=== PATIENT | male | born 1955 | race Caucasian/White ===

== ENCOUNTER 2017-02-16 13:45 | Inpatient (IN) | payer BC, OTHER ==
[~2017-02-16] VITALS: Ht 165.1 cm; Wt 85.7 kg
--- NOTE | ~2017-02-16 | P ---
[facility] [place] [address] PROCEDURE REPORT Name: ALEXNICHOLEBECKBIA DAVID Room #: 302-P [facility] IN M.R.#: [id number] Admission: 02/16/17 Attend Phys: Jeramie Rader MD Discharge: 02/19/17 Date of : 57 Report #: [id number] THIS REPORT FOR: //name// CC: Jeramie Alford DATE OF SERVICE: 02/18/2017 HISTORY OF PRESENT ILLNESS: This is a 61-year-old male patient admitted to the hospital with a possible insect bite with secondary cellulitis to his left abdominal wall. He has areas of necrosis and debridement was felt to be appropriate. PREPROCEDURE DIAGNOSIS: Necrotic ulceration to left abdominal wall. POSTPROCEDURE DIAGNOSIS: Necrotic ulceration to left abdominal wall. PROCEDURE PERFORMED: Full thickness sharp excisional debridement of the left abdominal wall. DESCRIPTION OF PROCEDURE: After appropriate informed consent was obtained, the area of the left abdominal wall was prepped and draped in the usual sterile fashion and anesthetized with 1% lidocaine with epinephrine. After adequate local anesthesia, a #15 bladed scalpel was used to excise the necrotic material including the wound margins down into the subcutaneous tissue to healthy bleeding tissue. Bleeding was controlled with direct pressure. Estimated blood loss approximately 2 mL. The patient tolerated the procedure well with no complications. <ELECTRONICALLY SIGNED> By: Constantin Solomon MD 02/19/17 1804 1821 0057 Constantin Solomon MD /baldev
--- NOTE | ~2017-02-16 | HC ---
[facility] [place] [address] CONSULTATION Name: ALEXTJBIA FRANKIE Room #: 302-P [facility] IN ..#: [id number] Admission: 02/16/17 Attend Phys: Jeramie Rader MD Discharge: 02/19/17 Date of : 57 Report #: [id number] THIS REPORT FOR: //name// CC: Jeramie Alford DATE OF SERVICE: 02/18/2017 WOUND CARE CONSULTATION DATE OF EVALUATION: 02/18/2017 CHIEF COMPLAINT: Cellulitis and ulceration, left abdominal wall. HISTORY OF PRESENT ILLNESS: This is a 61-year-old male patient who was approximately a week ago camping in [place], [place] with [employer]. He noticed a possible small insect bite to his left abdominal wall and developed some surrounding erythema. This became progressive and increasingly painful and then developed some tissue necrosis. He was subsequently admitted to the hospital for ongoing treatment and evaluation and I have been asked to see him with regard to wound care. The patient denies problems with previous ulcerations or nonhealing wounds. He has no history of diabetes or any immunocompromised. Patient's cultures were obtained on admission and are pending at this time. He has been started on intravenous cefazolin and notes that he is feeling somewhat better. ALLERGIES: No known drug allergies. SOCIAL HISTORY: Currently smokes a pipe and admits occasional alcohol use. PAST MEDICAL HISTORY: Positive for a "mini stroke" with no residual sequelae. CURRENT MEDICATIONS: Include aspirin, cefazolin, diphenhydramine, enoxaparin, hydrocodone, mupirocin, ondansetron as well as vancomycin intravenously. REVIEW OF SYSTEMS: CONSTITUTIONAL: The patient denies fever or chills. ENT: The patient denies earache, nasal drainage, or sore throat. CARDIOVASCULAR: The patient denies chest pain, palpitation, or diaphoresis. PULMONARY: The patient denies cough or shortness of breath. GASTROINTESTINAL: The patient denies nausea or abdominal pain. ORTHOPEDIC: The patient has pain, swelling, or limitations of extremities. Other systems are negative other than that mentioned in the history of present illness. PHYSICAL EXAMINATION: [facility] [address] [place] [address] CONSULTATION Name: BIA SANCHEZ Room #: 302-P [facility]#: [id number] Admission: 02/16/17 Attend Phys: Jeramie Rader MD Discharge: 02/19/17 Date of : 57 Report #: [id number] VITAL SIGNS: Include temperature 98.0, pulse 82, respiratory rate of 16, blood pressure 138/84. GENERAL: This is a well-developed, well-nourished man patient who appears to be in no apparent distress. HEENT: Head normocephalic. Mouth and throat were clear. NECK: Supple. LUNGS: Clear. HEART: Regular. ABDOMEN: Slightly obese. There is tenderness and erythema in the left lateral abdominal wall. There are 2 areas of localized necrosis with surrounding erythema and induration. There is a line drawn on the skin and the erythema appears to be retreated to within the bounds of that line. There is no evidence of lymphangitis. EXTREMITIES: Without clubbing or cyanosis. Pulses are palpable. NEUROLOGIC: The patient is alert, oriented and appropriate. Motor is 5/5 in the upper and lower extremity. LABORATORY DATA: Includes sodium 140, potassium 4.0, chloride 103, CO2 27, BUN is 15, creatinine 1.2, glucose of 93, white blood cell count 10.2 with hemoglobin of 15.8, hematocrit of 46.5, and platelet count 274,000. CLINICAL IMPRESSION: Necrotic ulceration to the left abdominal wall with surrounding cellulitis, possibly secondary to insect bite. It cannot be specified which type of insect, whether this was spider or other. The areas of necrosis were sharply debrided in an excisional manner. Please refer to separate procedure note regarding those details. RECOMMENDATION: At this point in time, we recommend a topical antibiotic ointment with a nonadherent dressing and a gauze or ABD, secondary dressing to be changed once daily. I agree with continued use of intravenous antibiotic therapy, pending cultures. I have answered all questions. I appreciate being asked to see the patient in consultation. <ELECTRONICALLY SIGNED> By: Constantin Solomon MD 02/19/17 1804 1826 0023 Constantin Solomon MD /nt
--- NOTE | ~2017-02-16 | HC ---
[facility] [place] [address] CONSULTATION Name: BIA SANCHEZ Room #: 302-P ADM IN M.R.#: [id number] Admission: 02/16/17 Attend Phys: Jeramie Rader MD Discharge: Date of : 57 Report #: [id number] THIS REPORT FOR: //name// CC: Jeramie Alford DATE OF SERVICE: 02/18/2017 INFECTIOUS DISEASE CONSULTATION ATTENDING PHYSICIAN: Jeramie Rader M.D. REASON FOR CONSULTATION: Left-sided abdominal wall spider bite versus cellulitis. HISTORY OF PRESENT ILLNESS: Apparently, this patient was camping a week ago this past Saturday and returned home, when he started feeling something ____ on the left flank. The redness of the left flank continued to progress. He developed a couple of areas of superficial skin necrosis. He was initially started on topical triple antibiotics and ibuprofen. He failed to improve. He was evaluated in the Emergency Room, and he was admitted. He was started on Ancef. I did discuss the patient's situation with Dr. Koenig and changed Ancef to vancomycin yesterday. The patient at present was evaluated by Dr. Fabian Morales. The blood scabs from the left flank area where he might have the spider bite were debrided. The patient is overall feeling better. He actually could be going home. The only drawback is that the culture result is not back and the Gram stain showing some gram-positive cocci. The patient for the most part is a healthy person. The only problem is a TIA and tonsillectomy in the past. During this hospitalization, he was mildly azotemic and this has resolved with IV fluids. DRUG ALLERGIES: None listed. MEDICATIONS: Enoxaparin 40 mg subQ daily, vancomycin 1250 mg IV every 12 hours, topical mupirocin, aspirin 81 mg daily, Benadryl p.r.n., hydrocodone p.r.n., and intravenous fluids, we will discontinue. He was on cefazolin on February 16 and . SOCIAL HISTORY: See H and P. FAMILY HISTORY: See H and P. PAST MEDICAL HISTORY: Tonsillectomy and adenoidectomy; transient ischemic attack, on treatment with aspirin by mouth; possible 30% carotid artery disease on the right side. Remainder of the artery is normal. [address] [address] CONSULTATION Name: BIA SANCHEZ Room #: 302-P [facility] IN M.R.#: [id number] Admission: 02/16/17 Attend Phys: Jeramie Rader MD Discharge: Date of : 57 Report #: [id number] REVIEW OF SYSTEMS: Essentially noncontributory besides local abdominal wall pains and low grade fever. PHYSICAL EXAMINATION: GENERAL: Well-developed man, non-toxic looking, in no distress. VITAL SIGNS: He is presenting with following vital signs: Temperature maximum at 100.2 on 02/16/2017, at 1447 hours, afebrile thereafter. Pulse 82, respirations 16, and BP 138/84. HEENMT: Normal. NECK: Supple, no thyromegaly. LUNGS: Clear to auscultation. HEART: S1, S2. No gallop or murmur. ABDOMEN: There are a couple of areas of black discoloration which may have been ____ of the spider insect bite on the left flank. Those lesions were unroofed now. The area of erythema of the left flank abdominal wall is improved compared to pictures obtained by from previous days. Abdomen benign otherwise. GENITALIA AND RECTAL: Deferred. EXTREMITIES: No clubbing, cyanosis. NEUROLOGIC: Grossly within normal limits. LABORATORY DATA: On admission, BUN 29, creatinine 1.5. Today, those have reverted back to normal. Albumin 3.6 g/dL on admission. On admission, WBC 9.2, hemoglobin 15.9. Today's WBC is 10.2, hemoglobin 15.8 and platelets 274,000. MICROBIOLOGY DATA: The Gram stain of the abdominal wall lesion that was sampled revealed few wbc's, moderate rbc's, rare gram-positive cocci, the culture is still pending. Blood cultures negative. ASSESSMENT: 1. Possible spider - insect bite, left abdominal wall with cellulitic changes, possible superimposed streptococcal versus staphylococcal infection. 2. Acute kidney injury, resolved. 3. History of transient ischemic attack. SUGGESTIONS: We will continue vancomycin 250 IV every 12 hours. We will discuss situation with Dr. Rader. We will try to determine time of discharge. The patient would like to be discharged today. If so, could give Minocin 100 mg b.i.d. and Keflex 500 q.i.d. With that combination, we will cover streptococcus and MRSA. Dr. Rader, thank you for requesting my suggestions. <ELECTRONICALLY SIGNED> By: Brain Metcalf MD 02/19/17 1117 1340 12 Brain Metcalf MD /nt
--- NOTE | ~2017-02-16 | CRIT ---
[facility] [place] [address] CRITICAL CARE NOTE Name: LAURABIA DAVID Room #: 302-P [facility] IN M.R.#: [id number] Admission: 02/16/17 Attend Phys: Jeramie Rader MD Discharge: Date of : 57 Report #: [id number] THIS REPORT FOR: //name// CC: Jeramie Alford DATE OF SERVICE: 02/17/2017 REASON FOR CONSULTATION: Cellulitis of left lower abdominal wall, suspected insect bite or spider bite. HISTORY OF PRESENT ILLNESS: The patient is a generally healthy, obese 61-year-old gentleman, who is a tobacco user and has a history of prior TIA, who approximately 7-8 days ago went camping and afterwards noticed some redness and tenderness in his left lower abdominal area. The area became red and tender with two small open wounds, which started to drain and some redness extended from the wound. The patient treated this at home with topical antibiotics and did not see a physician. The patient had some low-grade fever. Redness around the wound extended and after about a week being busy at work, he presented himself to the emergency room where he was admitted to [facility] for cellulitis of the left lower abdominal wall with a small area of central necrosis. ALLERGIES: No known drug allergies. HOME MEDICATIONS: See chart. PAST MEDICAL HISTORY: The patient is nondiabetic. He has a history of transient ischemic attack in the past. SOCIAL HISTORY: The patient is a tobacco user. ADMISSION LABORATORY DATA: White blood count 9.2, creatinine 1.5. PHYSICAL EXAMINATION: GENERAL: The patient is a very pleasant appearing, alert 61-year-old gentleman who is moderately obese. HEENT: He is alert and oriented. Mucous membranes are moist. NECK: Supple. CHEST: Clear. HEART: Regular rate and rhythm. OBJECTIVE: VITAL SIGNS: On admission, temperature 37.3 with pulse of 105. Today, temperature 36.8, pulse 76, blood pressure 152/93. ABDOMEN: Abdominal exam shows his left lower abdomen, flank area, two small [facility] [address] [place] [address] CRITICAL CARE NOTE Name: BIA SANCHEZ Room #: 302-P [facility] IN [facility]#: [id number] Admission: 02/16/17 Attend Phys: Jeramie Rader MD Discharge: Date of : 57 Report #: [id number] dark open wounds in the left lateral lower abdomen, largest measuring 0.8 x 0.4 cm and small one measuring 0.6 x 0.3 cm with some dark brown discoloration with very small amount of drainage. There is a 2 cm area of underlying induration which does not appear to be fluctuant. Extending from this in a 35 cm x 10 cm area, there is erythema of the skin, which is nonindurated. ASSESSMENT AND PLAN: 1. Obesity. 2. Tobacco use. 3. History of transient ischemic attack. 4. Cellulitis of left lower lateral abdomen with open central necrotic wound. This may represent spider bite versus primary bacterial infection such as rule out methicillin-resistant Staphylococcus aureus. By clinical inspection and palpation of the area, I do not feel that there is an abscess underlying and I believe there is minimal necrotic tissue under the skin. I feel the best course of treatment would be observation with IV antibiotics. The patient is currently on Ancef. I spoke with Dr. Jeramie Rader and recommended that infectious disease be consulted as methicillin-resistant Staphylococcus aureus infection can mimic spider bite. We will observe the wound, may require a local debridement if appearance changes. The patient currently does not appear septic. He is afebrile. White count is 8.5 today. He does feel better. Order topical mupirocin. Wound cultures are pending. Wound care team will follow. By: [id number] [id number] Derrick Koenig MD /baldev
[2017-02-16 13:46] VITALS: BP 131/92
[2017-02-16 14:28] LABS: BASOPHILS 0.6 % (0.0-2.0); EOSINOPHILS 3.8 % (0.0-3.0); HEMATOCRIT 46.8 % (42.0-52.0); HEMOGLOBIN 15.9 gm/dL (14.0-18.0); LYMPHOCYTES 21.2 % (24.0-44.0); MCH 30.7 pg (26.0-34.0); MCV 90.3 fL (80.0-100.0); MONOCYTES 9.7 % (1.0-8.0); PLATELET COUNT 270 thou/uL (150-400); POLYS 64.7 % (36.0-66.0); RBC 5.19 mil/uL (4.50-6.00); RDW 13.1 % (10.5-14.5); WBC 9.2 thou/uL (4.0-11.0)
[2017-02-16 14:29] LABS: MANUAL DIFF NO
[2017-02-16 14:44] LABS: CREATININE 1.5 mg/dL (0.7-1.3); POTASSIUM 4.3 mmol/L (3.5-5.1)
[2017-02-16 14:49] LABS: ALBUMIN 3.6 g/dL (3.4-5.0); TOTAL BILIRUBIN 0.4 mg/dL (<0.1-1.0); TOTAL PROTEIN 7.4 g/dL (6.4-8.2)
[2017-02-16 16:00] VITALS: BP 131/80
[2017-02-16 16:50] VITALS: BP 143/82
[2017-02-16] MEDS ORDERED: NOHOMEMEDICATIONS (17:28)
[2017-02-16 20:00] VITALS: BP 133/75
[2017-02-17 03:31] LABS: HEMATOCRIT 42.6 % (42.0-52.0); HEMOGLOBIN 14.4 gm/dL (14.0-18.0); MCH 30.2 pg (26.0-34.0); MCHC 33.7 g/dL (28.0-37.0); MCV 89.4 fL (80.0-100.0); RBC 4.76 mil/uL (4.50-6.00); RDW 13.1 % (10.5-14.5); WBC 8.5 thou/uL (4.0-11.0)
[2017-02-17 03:43] LABS: CALCIUM 8.3 mg/dL (8.5-10.1); CREATININE 1.2 mg/dL (0.7-1.3)
[2017-02-17 04:00] VITALS: BP 138/84
[2017-02-17 07:58] VITALS: BP 152/93
[2017-02-17 16:01] VITALS: BP 127/84
[2017-02-17 19:20] VITALS: BP 147/92
[2017-02-18 03:40] VITALS: BP 154/94
[2017-02-18 05:25] LABS: HEMATOCRIT 46.5 % (42.0-52.0); HEMOGLOBIN 15.8 gm/dL (14.0-18.0); MCH 30.7 pg (26.0-34.0); MCHC 33.9 g/dL (28.0-37.0); MCV 90.7 fL (80.0-100.0); RBC 5.13 mil/uL (4.50-6.00); RDW 13.6 % (10.5-14.5); WBC 10.2 thou/uL (4.0-11.0)
[2017-02-18 05:42] LABS: CALCIUM 8.8 mg/dL (8.5-10.1); CREATININE 1.2 mg/dL (0.7-1.3)
[2017-02-18 07:39] VITALS: BP 138/84
[2017-02-18 17:07] VITALS: BP 149/89
[2017-02-18 19:00] VITALS: BP 137/82
[2017-02-19 03:07] LABS: HEMATOCRIT 44.1 % (42.0-52.0); HEMOGLOBIN 15.1 gm/dL (14.0-18.0); MCH 30.6 pg (26.0-34.0); MCHC 34.3 g/dL (28.0-37.0); MCV 89.3 fL (80.0-100.0); RBC 4.94 mil/uL (4.50-6.00); WBC 7.9 thou/uL (4.0-11.0)
[2017-02-19 03:39] VITALS: BP 133/79
[2017-02-19 08:25] VITALS: BP 142/81
[2017-02-19 13:28] VITALS: BP 142/81
[2017-02-19] MEDS ORDERED: MINOCIN100 MG PO (13:38)
== END 2017-02-19 14:30 | disposition home or self-care (01) | DRG 571 ==
LOC: ER 13:45 → 3N 15:19 → EROBS 15:19 → 3N 16:03
PROVIDERS: Hospitalist; Physician Assistant
PROC: 0JB80ZZ Excision of Abdomen Subcutaneous Tissue and Fascia, Open Approach (ICD-10-PCS; principal; 2017-02-18)
DX: L03.311 Cellulitis of abdominal wall (principal); N17.9 Acute kidney failure, unspecified; T63.301A Toxic effect of unspecified spider venom, accidental (unintentional), initial encounter; F17.290 Nicotine dependence, other tobacco product, uncomplicated; E66.9 Obesity, unspecified; I65.23 Occlusion and stenosis of bilateral carotid arteries; Z86.73 Personal history of transient ischemic attack (TIA), and cerebral infarction without residual deficits; Z91.011 Allergy to milk products; Z91.018 Allergy to other foods; Y92.89 Other specified places as the place of occurrence of the external cause; Z79.899 Other long term (current) drug therapy; Z68.31 Body mass index [BMI] 31.0-31.9, adult; Z90.49 Acquired absence of other specified parts of digestive tract; Z79.82 Long term (current) use of aspirin
CPT/HCPCS: 10795

== ENCOUNTER → 2017-03-01 | Outpatient (CLI) | payer BC, OTHER ==
[~2017-03-01] MED LIST: MINOCIN100 MG PO; NOHOMEMEDICATIONS
== END ==
LOC: HYPER 07:50
DX: S30.861A Insect bite (nonvenomous) of abdominal wall, initial encounter (principal); Z86.73 Personal history of transient ischemic attack (TIA), and cerebral infarction without residual deficits; F17.210 Nicotine dependence, cigarettes, uncomplicated; Z72.89 Other problems related to lifestyle; W57.XXXA Bitten or stung by nonvenomous insect and other nonvenomous arthropods, initial encounter; Y93.89 Activity, other specified; Y92.89 Other specified places as the place of occurrence of the external cause; Y99.8 Other external cause status